=== PATIENT | female | born 1955 | race Caucasian/White ===

== ENCOUNTER 2020-11-13 19:40 | Observation (INO) ==
[2020-11-13] MEDS ORDERED: Ipratropium/Albuterol Neb 3 ML IH ONE (21:02)
[2020-11-13] MEDS ORDERED: EPINEPHrine 1 MG/ML VIAL IM PRN (21:22)
[2020-11-13] MEDS ORDERED: Ondansetron 4 MG/2 ML VIAL IVP PRN (21:22)
[2020-11-13] MEDS ORDERED: Bamlanivimab 700 MG, Etesevimab 1,400 MG in 0.9 % Sodium Chloride 100 ML IVPB ONE (21:22)
[2020-11-13] MEDS ORDERED: Acetaminophen 325 MG TABLET PO PRN (21:22)
[2020-11-13] MEDS ORDERED: methylPREDNISolone 125 MG/2 ML VIAL IVP PRN (21:22)
[2020-11-13 21:44] LABS: Basophils % 0.3 %; Hematocrit 41.7 % (35.3-44.9); Hemoglobin 13.9 g/dL (11.5-15.4); Immature Granulocytes % 0.9 % (0-4); Lymphocytes # 2.1 K/mcL (0.6-4.6); Mean Corpuscular HGB Conc 33.3 g/dL (31.6-35.5); Mean Corpuscular Hemoglobin 29.4 pg (28.0-33.3); Mean Corpuscular Volume 88.3 fL (83.0-100.0); Mean Platelet Volume 10.9 fL (9.4-12.4); Monocytes # 1.6 K/mcL (0.0-1.3); Monocytes % 15.7 %; Neutrophils # 6.5 K/mcL (1.6-8.9); Platelet Count 262 K/mcL (140-400); Red Blood Count 4.72 M/mcL (3.82-4.97); Red Cell Distribution Width 12.9 % (11.5-14.5); Segmented Neutrophils % 63.1 %; White Blood Count 10.3 K/mcL (4.3-11.1)
[2020-11-13 22:01] LABS: BUN/Creatinine Ratio 20 (6-26); Blood Urea Nitrogen 18 mg/dL (8-23); Carbon Dioxide 28 mEq/L (23-29); Chloride 99 mEq/L (98-107); Glucose 79 mg/dL (70-105); Osmolality,Calculated 283 (280-300); Potassium 3.4 mEq/L (3.5-5.1); Sodium 136 mEq/L (136-145); eGFR For African Americans > 60 (> 60); eGFR For Non-African Americans > 60 (> 60)
[2020-11-13 22:02] LABS: Troponin I < 0.03 ng/mL (< 0.04)
[2020-11-14] MEDS ORDERED: Ondansetron 4 MG/2 ML VIAL IVP PRN (00:27)
[2020-11-14] MEDS ORDERED: Acetaminophen 325 MG TABLET PO PRN (00:27)
[2020-11-14] MEDS ORDERED: Naloxone 0.4 MG/ML INJ IVP PRN (00:27)
[2020-11-14] MEDS ORDERED: Benzonatate 100 MG CAPSULE PO PRN (00:35)
[2020-11-14] MEDS ORDERED: Melatonin 3 MG TABLET PO PRN (00:40)
[2020-11-14] MEDS: Ipratropium 1 PUFF INHALER IH SCH ×2 (04:07→11:14)
[2020-11-14 05:01] LABS: Basophils % 0.1 %; Hematocrit 36.8 % (35.3-44.9); Hemoglobin 12.5 g/dL (11.5-15.4); Immature Granulocytes % 1.2 % (0-4); Lymphocytes # 0.5 K/mcL (0.6-4.6); Lymphocytes % 5.3 %; Mean Corpuscular Hemoglobin 29.7 pg (28.0-33.3); Mean Corpuscular Volume 87.4 fL (83.0-100.0); Mean Platelet Volume 11.3 fL (9.4-12.4); Monocytes # 0.9 K/mcL (0.0-1.3); Monocytes % 8.5 %; Neutrophils # 8.6 K/mcL (1.6-8.9); Platelet Count 224 K/mcL (140-400); Red Blood Count 4.21 M/mcL (3.82-4.97); Segmented Neutrophils % 84.9 %; White Blood Count 10.1 K/mcL (4.3-11.1)
[2020-11-14 05:09] LABS: Alanine Aminotransferase 17 Units/L (7-52); Albumin 3.8 g/dL (3.5-5.7); Albumin/Globulin Ratio 1.2 (1.1-2.2); Alkaline Phosphatase 47 Units/L (34-104); Aspartate Amino Transferase 20 Units/L (13-39); BUN/Creatinine Ratio 19 (6-26); Bilirubin,Total 0.5 mg/dL (0.3-1.0); Blood Urea Nitrogen 15 mg/dL (8-23); Calcium 8.3 mg/dL (8.6-10.3); Carbon Dioxide 24 mEq/L (23-29); Chloride 101 mEq/L (98-107); Globulin 3.1 g/dL (2.4-3.5); Glucose 205 mg/dL (70-105); Osmolality,Calculated 285 (280-300); Potassium 3.7 mEq/L (3.5-5.1); Sodium 134 mEq/L (136-145); Total Protein 6.9 g/dL (6.4-8.9); eGFR For African Americans > 60 (> 60); eGFR For Non-African Americans > 60 (> 60)
[2020-11-14 05:12] LABS: Albumin 3.8 g/dL (3.5-5.7); Albumin/Globulin Ratio 1.3 (1.1-2.2); Bilirubin,Direct 0.1 mg/dL (0.0-0.2); Bilirubin,Indirect 0.4 mg/dL (0.0-1.0); Bilirubin,Total 0.5 mg/dL (0.3-1.0); Globulin 2.9 g/dL (2.4-3.5); Prothrombin Time 11.6 Seconds (9.4-12.1); Total Protein 6.7 g/dL (6.4-8.9)
[2020-11-14] MEDS ORDERED: D5% in Water 1,000 ML IVC PRN (05:21)
[2020-11-14] MEDS ORDERED: Dextrose Gel 15 GM/37.5 ML TUBE PO PRN ×2 (05:21)
[2020-11-14] MEDS ORDERED: *HR* Dextrose 50 % in Water (Syg) 50 ML SYRINGE IVP PRN (05:21)
[2020-11-14] MEDS ORDERED: *HR* Enoxaparin 40 MG/0.4 ML SYRINGE SQ SCH (06:00)
[2020-11-14] MEDS ORDERED: Remdesivir 200 MG in 0.9 % Sodium Chloride 100 ML IVPB ONE (07:00)
[2020-11-14] MEDS ORDERED: Insulin LISPRO 300 UNITS/3 ML VIAL SUBQ SCH (07:30)
[2020-11-14 07:41] VITALS: PULSE 63
[2020-11-14] MEDS ORDERED: Cholecalciferol (D-3) 1,000 UNIT (25MCG) TABLET PO SCH (09:00)
[2020-11-14 12:05] VITALS: BP 119/70; TEMP 98.3; O2SAT 94
[2020-11-15] MEDS ORDERED: Remdesivir 100 MG in 0.9 % Sodium Chloride 100 ML IVPB SCH (07:00)
== END 2020-11-14 13:30 | disposition home or self-care (01) ==
LOC: 3ANU 19:40 → EMEROOARM 19:40 → SUATTDRO 11-14 00:24 → 3ANU 11-14 02:21
PROVIDERS: ADMIT Internal Medicine; ATTEND Family Medicine